=== PATIENT | male | born 1970 | race African-American/Black ===

== ENCOUNTER 2021-11-17 15:19 | Emergency (ER) | payer MEDICAID, OTHER ==
[~2021-11-17] VITALS: Ht 170.2 cm; Wt 72.6 kg
[2021-11-17] MEDS ORDERED: SODIUM CHLORIDE 0.9% 1,000 ML IV ONE ×2 (16:15)
[2021-11-17] MEDS ORDERED: VANCOMYCIN 1GM/250ML 250 ML IV ONE (16:15)
[2021-11-17 16:40] VITALS: BP 119/76
[2021-11-17 19:44] LABS: INR 1.19 (0.9-1.15); Partial Thromboplastin Time 28.1 sec (23.6-33.0)
== END 2021-11-17 23:20 | disposition home or self-care (01) ==
LOC: EDBD 15:19 → ER 15:19
DX: S81.801A Unspecified open wound, right lower leg, initial encounter (principal); T67.5XXA Heat exhaustion, unspecified, initial encounter; E86.0 Dehydration; R55 Syncope and collapse; I10 Essential (primary) hypertension; E11.9 Type 2 diabetes mellitus without complications; X58.XXXA Exposure to other specified factors, initial encounter; Y93.89 Activity, other specified; Y92.89 Other specified places as the place of occurrence of the external cause; Y99.8 Other external cause status
CPT/HCPCS: 36415; 84484; 85610; 85730; 93005; 96360; 99284; J7030